=== PATIENT | male | born 1980 | race Caucasian/White ===

== ENCOUNTER 2021-03-22 16:00 | Emergency (ER) | payer BC ==
[~2021-03-22] VITALS: Ht 182.9 cm; Wt 74.1 kg
[2021-03-22 16:00] VITALS: BP 114/93
[2021-03-22] MEDS ORDERED: FLUORESCEIN 1MG EYE STRIP. ONE (16:51)
[2021-03-22] MEDS ORDERED: KETO5DRO72 EACHEYE (17:13)
[2021-03-22] MEDS ORDERED: CIPR2.5D2 EACHEYE (17:13)
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
[2021-03-22] MEDS ORDERED: CIPROFLOXACIN 0.3% OPHTH SOLUTION 2.5ML BOTTLE. OS ONE (17:15)
== END 2021-03-22 17:20 | disposition home or self-care (01) ==
LOC: ER 16:00
DX: S05.02XA Injury of conjunctiva and corneal abrasion without foreign body, left eye, initial encounter (principal); X58.XXXA Exposure to other specified factors, initial encounter; Y93.I9 Activity, other involving external motion; Y92.89 Other specified places as the place of occurrence of the external cause; Y99.8 Other external cause status
CPT/HCPCS: 99283